=== PATIENT | male | born 1960 | race Caucasian/White ===

== ENCOUNTER 2017-04-25 07:44 | Day surgery (SDC) | payer OTHER ==
[~2017-04-25] VITALS: Ht 190.5 cm; Wt 117.8 kg
[~2017-04-25 07:44] MED LIST: ASPIRIN325 MG PO; CENTRUM MEN'S1 EACH PO; MELATONIN10 M2 PO; SUDAFED PE PRE1 EAC2 PO; TYLENOL325 MG PO
--- NOTE | 2017-04-25 09:59 | NUR ---
04/25/17 0959 Lin Ibanez 0945 PATIENT ARRIVES TO PACU AWAKE, ALERT AND ORIENTED X3. RESP EVEN AND UNLABORED, NC AT 3 LITERS. DENIES PAIN OR NAUSEA. 0950 RESTING WITH EYES CLOSED, AWAKENS TO VERBAL STIMULI. 1000 ROOM AIR.
--- NOTE | 2017-04-28 08:29 | OR ---
[facility] [address], [place] [address] Signed DATE OF OPERATION: 04/25/2017 SURGEON: Ozzie Jansen MD PREOPERATIVE DIAGNOSIS: Screening. POSTOPERATIVE DIAGNOSES: 1. A 7 mm polyp, ileocecal valve. 2. Multiple 3 mm polyps in the rectum. 3. Moderate internal and external hemorrhoids. PROCEDURE: Colonoscopy with hot biopsy. ESTIMATED BLOOD LOSS: None. INDICATIONS: Heath is a 57-year-old gentleman, asked to see me for his initial colonoscopy. He has been in and out of atrial fibrillation and so he had a stress test done that seemed to go fine. He said his heart has never limited his activities. He told me he has no lower GI complaints and there is no family history of colon cancer or polyps. I met with Heath in the office. I gave him a pamphlet on colonoscopy. We looked at that together along with the risks including, but not limited to gas, bloating, crampy abdominal pain, bleeding, perforation, requiring surgery, and missed diagnosis. We also discussed the need for IV conscious sedation. He had expressed understanding and wished to proceed. PROCEDURE NOTE: Heath was taken into our endoscopy suite and placed in the left lateral decubitus position. He was given divided doses of 7 mg of Versed and 100 mcg of fentanyl. A digital rectal exam was performed and this was unremarkable. The adult colonoscope was introduced and advanced under direct visualization of the camera without difficulty. His prep was quite good. Just as the ileocecal valve was joining the edge of the colon, he had a 7 mm polyp, which we removed with several bites of the hot biopsy forceps. The scope was then slowly withdrawn. The other polyps were removed easily with the help of hot biopsy forceps. We can see that he has moderate internal and external hemorrhoids. After this, the gas was suctioned out. The colonoscope removed. Heath tolerated the procedure quite well. Electronically Signed By: OZZIE JANSEN MD 04/28/17 0829 PATIENT NAME: HEATH HAYS OPERATIVE REPORT DATE OF : 62 REPORT #: [id number] PHYSICIAN: OZZIE JANSEN MD PCP: ARTHUR PEACE REPORT IS CONFIDENTIAL AND NOT TO BE RELEASED WITHOUT AUTHORIZATION [address] [address] Signed RECOMMENDATIONS: I will see Heath back in my office in 7 to 14 days to review his results. He can resume his aspirin in 1 week. Ozzie Jansen MD ALB/MODL /[id number] cc: MD Arthur Devlin PA Copies: RADHA MENDOZA ANDREW L MD HERMAN, JACQUELINE PA ~ Electronically Signed By: OZZIE JANSEN MD 04/28/17 0829 PATIENT NAME: HEATH HAYS OPERATIVE REPORT DATE OF : 62 REPORT #: [id number] PHYSICIAN: OZZIE JANSEN MD PCP: ARTHUR PEACE REPORT IS CONFIDENTIAL AND NOT TO BE RELEASED WITHOUT AUTHORIZATION
== END 2017-04-25 10:20 | disposition home or self-care (01) ==
LOC: OPS 07:44 → DS 07:44 → OPS 09:00 → DS 09:00 → OPS 10:20
PROVIDERS: Colon & Rectal Surgery
PROC: 0DBE8ZX Excision of Large Intestine, Via Natural or Artificial Opening Endoscopic, Diagnostic (ICD-10-PCS; 2017-04-25)
PROC: 0DBL8ZX Excision of Transverse Colon, Via Natural or Artificial Opening Endoscopic, Diagnostic (ICD-10-PCS; 2017-04-25)
PROC: 0DBP8ZX Excision of Rectum, Via Natural or Artificial Opening Endoscopic, Diagnostic (ICD-10-PCS; 2017-04-25)
PROC: 0DBC8ZX Excision of Ileocecal Valve, Via Natural or Artificial Opening Endoscopic, Diagnostic (ICD-10-PCS; principal; 2017-04-25 09:00)
DX: Z12.11 Encounter for screening for malignant neoplasm of colon (principal); D12.0 Benign neoplasm of cecum; K62.1 Rectal polyp; K64.4 Residual hemorrhoidal skin tags; K64.8 Other hemorrhoids; I48.91 Unspecified atrial fibrillation; Z96.653 Presence of artificial knee joint, bilateral; Z79.82 Long term (current) use of aspirin; Z79.899 Other long term (current) drug therapy
CPT/HCPCS: 99153; G0500; J2250; J3010; J7120